=== PATIENT | male | born 1975 ===

== ENCOUNTER 2017-12-17 05:50 | Day surgery (SDC) | payer OTHER ==
[2017-12-17] MEDS ORDERED: ULTRACET PO (11:11)
[2017-12-17] MEDS ORDERED: SURFAK240 M1 PO (11:11)
[2017-12-17] MEDS ORDERED: POLY119PG PO (11:11)
[2017-12-17] MEDS ORDERED: NEURONTIN600 MG PO (11:12)
== END 2017-12-17 14:35 | disposition home or self-care (01) ==
LOC: CIR.AMB 05:50
DX: K40.90 Unilateral inguinal hernia, without obstruction or gangrene, not specified as recurrent (principal); K42.0 Umbilical hernia with obstruction, without gangrene; K43.6 Other and unspecified ventral hernia with obstruction, without gangrene

== ENCOUNTER 2021-06-06 05:38 | Day surgery (SDC) | payer OTHER ==
[~2021-06-06 05:38] MED LIST: NEURONTIN600 MG PO; POLY119PG PO; SURFAK240 M1 PO; ULTRACET PO
[2021-06-06] MEDS ORDERED: SURFAK240 M1 PO (09:27)
[2021-06-06] MEDS ORDERED: ULTRACET PO (09:27)
[2021-06-06] MEDS ORDERED: MIRALAX510 GM PO (09:27)
[2021-06-06] MEDS ORDERED: NEURONTIN600 M1 PO (09:28)
== END 2021-06-06 12:05 | disposition home or self-care (01) ==
LOC: CIR.AMB 05:38
PROVIDERS: ATTEND Surgery
DX: K40.90 Unilateral inguinal hernia, without obstruction or gangrene, not specified as recurrent (principal); K42.0 Umbilical hernia with obstruction, without gangrene; K43.2 Incisional hernia without obstruction or gangrene; Z86.16 Personal history of COVID-19